=== PATIENT | female | born 1955 | race Caucasian/White ===

== ENCOUNTER 2018-08-12 00:35 | Emergency (ER) | payer SELFPAY ==
[~2018-08-12] VITALS: Ht 170.2 cm; Wt 63.5 kg
[2018-08-12 00:55] VITALS: BP 121/80
[2018-08-12] MEDS ORDERED: IBUPROFEN 600 MG TABLET. PO ONE (01:03)
[2018-08-12] MEDS: IBUPROFEN 600 MG TABLET. PO ONE (01:06)
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
[2018-08-12] MEDS ORDERED: IBUP600T16 PO (01:29)
--- NOTE | 2018-08-12 08:11 | RAD ---
Examination: 3 views of the right ankle and right foot HISTORY: History of injury to the right ankle and foot Comparison: None available Findings: The alignment of the ankle mortise grossly appears unremarkable. There is mild to moderate soft tissue swelling identified surrounding the ankle joint. Small cystic hypodensity identified deep to the medial tibial plafond probably a degenerative cyst. The alignment of the tarsal bones grossly appears unremarkable. The alignment of the tarsometatarsal joints, tarsophalangeal joints, interphalangeal joints grossly appears unremarkable. IMPRESSION: 1. No acute osseous findings. 2. Mild to moderate soft tissue swelling identified around the ankle joint. Electronically signed by: Sin Wagner MD (08/12/2018 8:07 AM) [facility]
== END 2018-08-12 01:35 | disposition home or self-care (01) ==
LOC: ER 00:35
DX: S93.401A Sprain of unspecified ligament of right ankle, initial encounter (principal); F17.200 Nicotine dependence, unspecified, uncomplicated; X50.9XXA Other and unspecified overexertion or strenuous movements or postures, initial encounter; Y93.89 Activity, other specified; Y92.89 Other specified places as the place of occurrence of the external cause; Y99.8 Other external cause status
CPT/HCPCS: 29515; 73610; 73630; 99284

== ENCOUNTER 2018-08-12 14:21 | Emergency (ER) | payer SELFPAY ==
[~2018-08-12] VITALS: Ht 170.2 cm; Wt 65.8 kg
[~2018-08-12 14:21] MED LIST: IBUP600T16 PO
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
[2018-08-12 16:50] VITALS: BP 143/78
== END 2018-08-12 17:45 | disposition short-term general hospital (02) ==
LOC: ER 14:21
DX: T76.21XA Adult sexual abuse, suspected, initial encounter (principal); N89.8 Other specified noninflammatory disorders of vagina; M25.571 Pain in right ankle and joints of right foot; E03.9 Hypothyroidism, unspecified; F32.9 Major depressive disorder, single episode, unspecified
CPT/HCPCS: 99285